=== PATIENT | male | born 1950 | race Caucasian/White ===

== ENCOUNTER 2016-11-25 01:05 | Inpatient (IN) | payer MEDICARE, MEDICAID ==
[2016-11-25] MEDS ORDERED: Nitroglycerin D5W 50,000 MCG/250 ML IVBOT IV SCH (01:17)
[2016-11-25] MEDS ORDERED: METHYLPREDNISOLONE 125 MG/2 ML VIAL IV ONE (01:17)
[2016-11-25 01:30] LABS: ALLEN'S TEST PASS; BEb -8.6 (+/- 2); TCO2 17.6 MMOL/L (23-27)
[2016-11-25 01:31] LABS: ABG Draw Site Right Radial; CPAP 7.5 cm H20
[2016-11-25 01:36] LABS: AUTOMATED BASOPHIL 1.2 % (0-2); AUTOMATED EOSINOPHIL 3.2 % (0-5); AUTOMATED MONOCYTE 5.2 % (3-10); AUTOMATED NEUTROPHIL 79.4 % (45-76); MPV 8.5 fL (7.4-10.4)
[2016-11-25 01:45] LABS: BLOOD UREA NITROGEN 36 MG/DL (9-20); CALC CORRECTED 8.1 MG/DL (8.4-10.2); CALCIUM 7.8 MG/DL (8.4-10.2); CALCULATED OSMOLALITY 278 MOs/Kg (270-290); CHLORIDE 107 mEq/L (98-107); CPK TOTAL WITH POSSIBLE MB 82 IU/L (55-170); GLUCOSE 201 MG/DL (70-99); SODIUM LEVEL 137 mEq/L (137-146); TOTAL PROTEIN 7.1 G/DL (6.3-8.2)
[2016-11-25 01:49] LABS: PARTIAL THROMB. TIME 23.3 SEC (22-35)
--- NOTE | 2016-11-25 01:51 | EDPRACDOC ---
- General Information Chief Complaint: Dyspnea/Resp distress Stated Complaint: RESP FAILURE Time Seen by Provider: 11/25/16 01:16 Information Source: Patient Mode Of Arrival: Ambulance Home Medications: Home Medications Amlodipine [Norvasc] 5 mg PO DAILY 11/15/13 Esomeprazole Mag Trihydrate [Nexium] 40 mg PO DAILY 09/18/15 Insulin Glargine,Hum.rec.anlog [Lantus] 20 unit SQ HS 09/18/15 Calcitriol [Rocaltrol] 0.25 mcg PO DAILY 11/11/15 Tamsulosin HCl [Flomax] 0.4 mg PO QAM 11/11/15 Triamcinolone [Kenalog, Aristocort] 1 pratik TOP QID 11/26/15 CloNIDine (Antihypertensive) [Catapres] 0.1 mg PO BID 07/15/16 Gabapentin 300 mg PO HS 07/15/16 Magnesium Oxide [Magox] 400 mg PO DAILY 07/15/16 Allergies/Adverse Reactions: Allergies Allergy/AdvReac Type Severity Reaction Status Date / Time clopidogrel bisulfate Allergy Hives* Verified 08/10/16 08:57 [From Plavix] iodine [Iodine] Allergy Itching Verified 08/10/16 08:57 - History of Present Illness Shortness of Breath: Severe Relevant History: Reports: COPD, Heart Failure (CHF) Cough: Reports: Non-productive Rhinorrhea: Reports: Clear SOB Worsens with: Reports: Anxiety, Lying Flat SOB Improves with: Reports: Sitting up, Inhaler, Rest Associated Signs and symptoms: Reports: Cough. 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 Denies: Pancreatitis Musculoskeletal History: Reports: Osteoarthritis Psychological History: Reports: Depression, Anxiety. Denies: Substance Use Disorder Systemic History: Reports: Cancer (ADENOCARCINOMA OF LUNG S/P IGGY RESECTION 2010 ), Anemia (FE DEF AND CKD), Diabetes Surgical History: Reports: Angioplasty, Other (Left upper lung lobectomy, aorto- femoral bypass) - Family Medical History Reports: Hypertension, Cancer (Multiple members of family of had lung cancer), Cardiac Disorders (dad). Denies: Diabetes, Stroke - Social Medical History Smoking Status: Never smoker Social History: Denies: MDMA (Ecstasy) Use, Substance Use Disorder EDM Review of Systems - Review of Systems ROS Negative Except as Marked: Yes All systems reviewed and were negative except as marked - Physical Exam Constitutional: Alert, Restless, Well nourished. negative: Well appearing Oriented to: Unable to Test, Other (CPAP, INC WOB, RESP DISTRESS) Last recorded Vital Signs: Last Vital Signs Temp Pulse 121 H 11/25/16 01:05 Resp 16 11/25/16 01:20 BP 210/130 H 11/25/16 01:05 Pulse Ox 95 11/25/16 01:20 Oxygen Pulse Oxygen Saturation 95 O2 Device CPAP Oxygen Flow Rate Fraction of Inspired Oxygen ( 35 FIO2) - HEENT Head: Normal Eye Exam: Normal Neck: Normal. negative: Limited ROM, Lymphadenopathy, Meningeal Signs - Respiratory/Cardiovascular Respiratory: Accessory Muscle Use, Diminished, Rales, Tachypnea, Other (CPAP, RESP DISTRESS, UNABLE TO SPEAK CLEARLY) Cardiovascular: Tachycardia, Gallop/S4. negative: Irregular, Diastolic murmur, Systolic murmur, Gallop/S3 - GI Auscultation: Normal Palpation: Normal Tenderness: Non tender, Other (MIDLINE INCISION SCAR) Elkins's Sign: Negative - Bladder: Normal - Musculoskeletal Back: Normal Extremities: Pedal Edema (2+ ROBERT LE TO MID CALF) - Integumentary Skin: Warm, Diaphoretic - Neurologic Memory Impaired: Normal Motor Function: Other (MOVES ALL EXT) Mood Description: Appropriate Thought: Coherent ED SOB MDM - Re-evaluation Re-evaluation 2 Re-evaluation Time: 01:54 (MUCH IMPROVED, ON BIPAP, NTG GTT SBP 156 ) - Results Result Diagrams: 11/25/16 01:11 11/25/16 01:11 Results: WBC 9.7 xk/uL (3.8-10.8) 11/25/16 01:11 RBC 5.23 xM/uL (4.70-6.10) 11/25/16 01:11 Hgb 14.9 g/dL (14.0-18.0) 11/25/16 01:11 Hct 45.0 % (42-52) 11/25/16 01:11 MCV 86 fL (80-94) 11/25/16 01:11 MCH 28.6 pg (27-32) 11/25/16 01:11 MCHC 33.2 g/dl (33-36) 11/25/16 01:11 RDW 14.7 % (11.5-14.5) H 11/25/16 01:11 Plt Count 182 xk/uL (130-400) 11/25/16 01:11 MPV 8.5 fL (7.4-10.4) 11/25/16 01:11 Neut % (Auto) 79.4 % (45-76) H 11/25/16 01:11 Lymph % (Auto) 11.0 % (17-44) L 11/25/16 01:11 [place] % (Auto) 5.2 % (3-10) 11/25/16 01:11 Eos % (Auto) 3.2 % (0-5) 11/25/16 01:11 Baso % (Auto) 1.2 % (0-2) 11/25/16 01:11 Absolute Neuts (auto) 7.66 xk/uL (1.7-8.2) 11/25/16 01:11 Absolute Lymphs (auto) 1.07 xk/uL (0.65-4.75) 11/25/16 01:11 Puncture Site Right radial 11/25/16 01:15 pH 7.310 pH UNITS (7.35-7.45) L 11/25/16 01:15 pCO2 33.0 mmHg (35-45) L 11/25/16 01:15 pO2 77.0 mmHg (80-100) L 11/25/16 01:15 HCO3 16.6 MMOL/L (22-26) L 11/25/16 01:15 Total CO2 17.6 MMOL/L (23-27) L 11/25/16 01:15 Base Excess -8.6 (+/- 2) L 11/25/16 01:15 CPAP 7.5 cm H20 11/25/16 01:15 Specimen Drawn By Kaytr 11/25/16 01:15 Lactic Acid 1.2 mEq/L (0.7-2.1) 11/25/16 01:11 Creatine Kinase Cancelled 11/25/16 01:11 Troponin I Cancelled 11/25/16 01:11 Oqi-E-Apxmauoppus Pept Cancelled 11/25/16 01:11 Lab Results 11/25/16 11/25/16 11/25/16 01:15 01:11 01:11 WBC RBC Hgb Hct MCV MCH MCHC RDW Plt Count MPV Neut % (Auto) Lymph % (Auto) [place] % (Auto) Eos % (Auto) Baso % (Auto) Absolute Neuts (auto) Absolute Lymphs (auto) Puncture Site Right radial pH 7.310 L pCO2 33.0 L pO2 77.0 L HCO3 16.6 L Total CO2 17.6 L Base Excess -8.6 L CPAP 7.5 Specimen Drawn By Kaytr Lactic Acid Creatine Kinase Cancelled Troponin I Cancelled Rbb-I-Sluvmtrytgi Pept Cancelled 11/25/16 11/25/16 01:11 01:11 WBC 9.7 RBC 5.23 Hgb 14.9 Hct 45.0 MCV 86 MCH 28.6 MCHC 33.2 RDW 14.7 H Plt Count 182 MPV 8.5 Neut % (Auto) 79.4 H Lymph % (Auto) 11.0 L [place] % (Auto) 5.2 Eos % (Auto) 3.2 Baso % (Auto) 1.2 Absolute Neuts (auto) 7.66 Absolute Lymphs (auto) 1.07 Puncture Site pH pCO2 pO2 HCO3 Total CO2 Base Excess CPAP Specimen Drawn By Lactic Acid 1.2 Creatine Kinase Troponin I Dry-B-Ibyqldmmtyi Pept - EKG EKG #1 EKG Time: 01:14 -: Yes EKG interpreted by me Rate: bpm: 120 [place]: Normal Rhythm: ST Block: None Hypertrophy: LVH ST: New, Inf, Lat, Nonsp Comparison: 11/25/15 (NEW INF / LAT CHANGES) ED Critical Care Note - Critical Care Note Total Time (mins): 35 Comments: Due to the presence of and / or the risk of deterioration, my attendance to this patient required critical care time, including assessment/reassessment, documentation, ordering and interpreting ancillary studies, discussion with ED staff and consultants,patient and family, and excludes time spent on separately billable procedures. - Departure Disposition: Admit IP To This Hospital Condition: Stable Final Diagnosis: Hypertensive emergency, Respiratory distress, Abnormal EKG, Acute decompensated heart failure Instructions: Chronic Hypertension (ED), *Heart Failure (Activity, Diet, Worsening Symptoms, Weight Monitoring)(ED) Education/Counseling Given To: Patient Education/Counseling Given Regarding: Diagnosis, Treatment, Prognosis Referrals: Clive Anguiano MD [Primary Care Provider] - One Week Decision to Admit Time: 02:17 Decision to admit date: 11/25/16 Decision to admit: from ED - Physician Consulted Hospitalist Time Called: 02:17 Provider Called: Fredo Alvarez Time Environmental Engineering Intern Returned Call: 02:17
--- NOTE | 2016-11-25 02:10 | DIRPT ---
CLINICAL DATA: Respiratory distress. Abdominal breathing. Bilateral wheezing. Elevated blood pressure. EXAM: PORTABLE CHEST 1 VIEW COMPARISON: 11/25/2015 FINDINGS: Heart size is normal. Bilateral pulmonary vascular congestion. Airspace disease in the right lung base could represent pneumonia or asymmetrical edema. Small bilateral pleural effusions. Calcification of the aorta. No pneumothorax. IMPRESSION: Bilateral pulmonary vascular congestion. Small bilateral pleural effusions. Airspace disease in the right lung base could indicate asymmetrical edema or pneumonia. Changes are developing since previous study. Electronically Signed By: Sridhar Campos M.D. On: 11/25/2016 02:08
--- NOTE | 2016-11-25 02:51 | HISTPHYS ---
- Chief Complaint shortness of breath - History of Present Illness PRIMARY CARE PROVIDER: Dr. Anguiano TIRE MANAGER: In [place] GI: Dr. Wheeler HPI: The patient is a 65 yo man with diastolic congestive heart failure (EF 55-60% in 09/2015), COPD per report, who presents with shortness of breath. He has had shortness of breath for a month, but last night it became so severe that he had to call EMS. He began to have profuse diaphoresis. No chest pressure, pain, or heaviness. Onset: Last night (a few hours ago). Duration: intermittent. Character: Severe; could not catch his breath. Alleviated by: Nothing. Exacerbated by: any exertion. Associated Symptoms: Palpitations but no chest pain. Diaphoresis. No Fever, chills. Shortness of breath and wheezing was worse tonight. Has coughing also, but no change in the sputum. Leg swelling is worse than normal. Has not noticed any weight gain. Treatments: none at home except usual medications. When EMS arrived, they found the patient to be in acute respiratory failure, with abdominal breathing, and started him on CPAP immediately. They found his blood pressure to be severely elevated at 260/130. They placed 2" of Nitropaste on the patient. In the emergency department the patient was still in respiratory failure, and was placed on BiPAP. For his elevated blood pressure, he was started on an IV nitro gtt, and the 2" nitropaste was left in place. - Medical History Cardiac History: Reports: Coronary Artery Disease (and chronic mesenteric ischemia, PAD.), Hypertension, Congestive Heart Failure (Diastolic. 09/2015 ECHO : EF 55-60%.), Hypercholesterolemia (and peripheral artery disease. Aorto- femoral bypass. 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 Baseline Cr 3.2-3.7, baseline GFR 16-19. Nephro : HP), Gastroesophageal Reflux (RECURRENT GI BLEEDS, SOURCE UNKNOWN.), Diverticulosis. Denies: Pancreatitis Musculoskeletal History: Reports: Osteoarthritis Systemic History: Reports: Cancer (Stage IA ADENOCARCINOMA OF LUNG S/P IGGY RESECTION 2010), Anemia (FE DEF AND CKD. Dr. Dodd.), Diabetes (Type 2) Neurological History: Reports: Cerebrovascular Accident (07/2015. Right occipital lobe.) Psychological History: Reports: Depression, Anxiety. Denies: Substance Use Disorder OTHER HISTORY CARDIAC HISTORY: Chronic mesenteric ischemia, celiac artery stenting 07/2013 Peripheral arterial disease with surgeries at [facility]: Aorto-femoral bypass 2004 Right carotid endarterectomy ECHOCARDIOGRAM 10/14/15: EF 55-60%. FINDINGS ------- Procedure:2D images, m-mode, color and spectral Doppler were obtained and reviewed. ECG rhythm:Sinus rhythm. Study quality:This study is of fair technical quality. Left Ventricle:The left ventricle is mildly dilated with mild concentric left ventricular hypertrophy. Overall left ventricular systolic function is normal with, an EF between 55 - 60 %. The diastolic filling pattern indicates impaired relaxation. Right Ventricle:The right ventricle is normal in size and function. Left Atrium:The left atrium is mildly dilated/ elongated. Right Atrium:The right atrium is normal in size and function. Septum appears normal, and is intact by color Doppler. Aortic Valve:The aortic valve is trileaflet with mild aortic valve sclerosis, good mobility, no regurgitation. Mitral Valve:Normal appearing mitral valve. There is trace mitral regurgitation. Tricuspid Valve:The tricuspid valve appears structurally normal. Mild tricuspid regurgitation present. The right ventricular systolic pressure, as measured by Doppler, is 35mmHg. Pulmonic Valve:The pulmonic valve is normal. Trace/mild (physiologic) pulmonic regurgitation. Aorta:The aortic root, ascending aorta and aortic arch appear normal,but somewhat TDS. IVC:Normal inferior vena cava with normal inspiratory collapse. Somewhat TDS Subcostal. Pericardium:There is no pericardial effusion. CONCLUSIONS 1. Mild concentric left ventricular hypertrophy with low normal systolic function, no segmental abnormality identified, EF 55-60%. 2. mild left atrial dilatation 3. aortic sclerosis but no significant valvular heart disease 4. normal right heart size/function, mild tricuspid regurgitation, high normal pulmonary artery pressure, 35mmHg 5. no intra-cardiac source for emboli identified 6. Diastolic dysfunction - impaired relaxation. ONCOLOGY HISTORY: Adenocarcinoma of lung, Stage IA. ([id number]) Moderately differentiated adenocarcinoma 1.8 cm in left upper lung. EGFR mutation and EML-4-ALK negative Left upper lobe resection at [facility] in July 2011 GI HISTORY: EGD 08/2015 for Hb 6.6 with melanotic stool. EGD unremarkable: small hiatal hernia. Colonoscopy 12/26/13: mild sigmoid diverticulosis otherwise normal. Small bowel biopsies 2014 negative for celiac disease. Colonoscopy 02/2012 consistent with ischemic colitis and tubular adenomas EGD 02/2012 showed duodenal polyps but no AVMs Was scheduled for capsule endoscopy at [facility] several times but did not show up Chronic mesenteric ischemia, celiac artery stenting 07/2013 - Surgical History Reports: Angioplasty (and Y-graft bypass surgery. celiac artery stent 08/12.), Other (@[facility]: Left upper lung lobectomy 2010, aorto-femoral bypass 2004, R CEA) - Medictions/Allergies Allergies clopidogrel bisulfate [From Plavix] Allergy (Verified 08/10/16 08:57) Hives* iodine [Iodine] Allergy (Verified 08/10/16 08:57) Itching IVP DYE Current Medication List: Reviewed Home Medications Amlodipine [Norvasc] 5 mg PO DAILY 11/15/13 Esomeprazole Mag Trihydrate [Nexium] 40 mg PO DAILY 09/18/15 Insulin Glargine,Hum.rec.anlog [Lantus] 20 unit SQ HS 09/18/15 Calcitriol [Rocaltrol] 0.25 mcg PO DAILY 11/11/15 Tamsulosin HCl [Flomax] 0.4 mg PO QAM 11/11/15 Triamcinolone [Kenalog, Aristocort] 1 pratik TOP QID 11/26/15 CloNIDine (Antihypertensive) [Catapres] 0.1 mg PO BID 07/15/16 Gabapentin 300 mg PO HS 07/15/16 Magnesium Oxide [Magox] 400 mg PO DAILY 07/15/16 - Family History Reports: Hypertension, Cancer (Lung: sister and brother, both .), Cardiac Disorders (Father: [place].), Other (Sister: cirrhosis.) - Social History Smoking Status: Former smoker (1 ppd x > 47 years.) Social History: Denies: Alcohol Use, MDMA (Ecstasy) Use, Substance Use Disorder - Review of Systems GENERAL: Diaphoresis. No Fever, chills. Positive for fatigue/malaise. HEENT: No nasal discharge or bleeding. No throat pain or swelling. No eye pain or eye redness. RESPIRATORY: Cough, wheezing, shortness of breath. CARDIOVASCULAR: Palpitations but no chest pain. GI: No abdominal pain, nausea, vomiting, diarrhea, constipation, or bloody stool. NEUROLOGICAL: No headache or focal weakness. INTEGUMENT: no rashes, itching, or lesions. LYMPHATIC SYSTEM: no lymph node swelling or pain. MUSCULOSKELETAL: no new pain or joint swelling. GENITOURINARY: No dysuria or hematuria. ENDOCRINE: No polyuria or polydipsia. HEME: No chronic anemia, bleeding, or easy bruising. - Physical Exam Vital Signs: Initial Vitals Temperature 98.8 F 11/25/16 01:05 Pulse Rate 121 H 11/25/16 01:05 Respiratory Rate 27 H 11/25/16 01:05 Blood Pressure 210/130 H 11/25/16 01:05 Pulse Oxygen Saturation 95 11/25/16 01:05 Vital Signs - 24 hr 11/25/16 11/25/16 11/25/16 01:05 01:11 01:20 Temperature 98.8 F Pulse Rate 121 H 120 H Respiratory 27 H 26 H 16 Rate Blood Pressure 210/130 H 210/113 H Pulse Oxygen 95 93 95 Saturation 11/25/16 11/25/16 11/25/16 01:26 01:41 01:47 Temperature Pulse Rate 111 101 101 Respiratory 24 18 20 Rate Blood Pressure 189/96 H 156/74 146/70 Pulse Oxygen 94 94 94 Saturation 11/25/16 11/25/16 11/25/16 01:51 01:56 02:01 Temperature Pulse Rate 98 99 99 Respiratory 20 18 18 Rate Blood Pressure 141/68 146/70 132/65 Pulse Oxygen 93 94 95 Saturation 11/25/16 11/25/16 11/25/16 02:06 02:11 02:16 Temperature Pulse Rate 100 99 95 Respiratory 18 18 18 Rate Blood Pressure 124/60 133/70 133/68 Pulse Oxygen 95 96 96 Saturation Weight: 87 kg Height: 5 feet 11 inches BMI: 26.8 - Other Exam Other Exam Findings: GENERAL: Ill-appearing, well nourished, in acute distress. HEENT: Normocephalic, atraumatic; pupils equal and round. Nares patent, without discharge or bleeding. No oropharyngeal lesions or erythema. Mucous membranes are dry. NECK: is supple, no masses, trachea midline. RESPIRATORY: Clear to auscultation bilaterally. Chest wall movements are symmetric. Tachypnea and use of accessory muscles to breathe. Bilateral rales. Scattered wheezing. No rhonchi. CARDIOVASCULAR: Normal S1, S2. Murmur 2/6 systolic. No rubs, or gallops. PMI non -displaced. Carotids: no carotid bruits. No bradycardia or tachycardia. DP pulses 2+ bilaterally. JVD noted. GI: soft, nontender, non-distended, normal active bowel sounds. No hepatosplenomegaly. INTEGUMENT: Clean, diaphoretic, and intact. Left lower leg medial aspect and toes: mild erythema, uniform. MUSCULOSKELETAL: Moving all extremities. No cyanosis. No clubbing. Edema: 1-2+ pitting edema in lower extremities bilaterally. NEUROLOGICAL: Cranial nerves 2-12 grossly intact. Motor 5/5 throughout upper extremities and 4/5 in lower extremities. Reflexes: 2+ bilaterally. Babinski: toes downgoing bilaterally. Intact Finger to nose. Sensory grossly intact to light touch. Intact rapid alternating movements bilaterally. No pronator drift. PSYCHIATRIC: Fully oriented. Normal and appropriate affect. LYMPHATIC: No cervical lymphadenopathy. No supraclavicular lymphadenopathy. - Lab Results 11/25/16 01:11 11/25/16 01:11 Laboratory Results - last 24 hr 11/25/16 11/25/16 11/25/16 01:11 01:11 01:11 WBC 9.7 RBC 5.23 Hgb 14.9 Hct 45.0 MCV 86 MCH 28.6 MCHC 33.2 RDW 14.7 H Plt Count 182 MPV 8.5 Neut % (Auto) 79.4 H Lymph % (Auto) 11.0 L Waller % (Auto) 5.2 Eos % (Auto) 3.2 Baso % (Auto) 1.2 Absolute Neuts (auto) 7.66 Absolute Lymphs (auto) 1.07 PT INR APTT Puncture Site pH pCO2 pO2 HCO3 Total CO2 Base Excess CPAP Specimen Drawn By Sodium 137 Potassium 4.6 Chloride 107 Carbon Dioxide 17 L Anion Gap 18 H BUN 36 H Creatinine 5.10 H Estimated GFR (MDRD) 11 L Glucose 201 H Calculated Osmolality 278 Lactic Acid 1.2 Calcium 7.8 L Corrected Calcium 8.1 L Total Bilirubin 0.5 AST 19 ALT 21 Alkaline Phosphatase 95 Creatine Kinase 82 Troponin I 0.04 Bns-T-Vsvsdtmrnez Pept 82851 H Total Protein 7.1 Albumin 3.7 11/25/16 11/25/16 11/25/16 01:11 01:11 01:11 WBC RBC Hgb Hct MCV MCH MCHC RDW Plt Count MPV Neut % (Auto) Lymph % (Auto) Waller % (Auto) Eos % (Auto) Baso % (Auto) Absolute Neuts (auto) Absolute Lymphs (auto) PT 10.4 INR 1.0 APTT 23.3 Puncture Site pH pCO2 pO2 HCO3 Total CO2 Base Excess CPAP Specimen Drawn By Sodium Potassium Chloride Carbon Dioxide Anion Gap BUN Creatinine Estimated GFR (MDRD) Glucose Calculated Osmolality Lactic Acid Calcium Corrected Calcium Total Bilirubin AST ALT Alkaline Phosphatase Creatine Kinase Cancelled Troponin I Cancelled Dge-H-Gseqivbijim Pept Cancelled Total Protein Albumin 11/25/16 01:15 WBC RBC Hgb Hct MCV MCH MCHC RDW Plt Count MPV Neut % (Auto) Lymph % (Auto) Waller % (Auto) Eos % (Auto) Baso % (Auto) Absolute Neuts (auto) Absolute Lymphs (auto) PT INR APTT Puncture Site Right radial pH 7.310 L pCO2 33.0 L pO2 77.0 L HCO3 16.6 L Total CO2 17.6 L Base Excess -8.6 L CPAP 7.5 Specimen Drawn By Kaytr Sodium Potassium Chloride Carbon Dioxide Anion Gap BUN Creatinine Estimated GFR (MDRD) Glucose Calculated Osmolality Lactic Acid Calcium Corrected Calcium Total Bilirubin AST ALT Alkaline Phosphatase Creatine Kinase Troponin I Epi-Q-Nmhnrxamizr Pept Total Protein Albumin - Diagnostic Findings EKG #1: 120 bpm. Sinus tachycardia. Anteroseptal infarct, age undetermined. ST and T wave abnormality, consider inferolateral ischemia. T wave inversion in leads 1, 2, aVF, and V6. J point elevation in V3, V4. Slight ST depression in 2 , aVF, and V6. Reviewed EKG personally. EKG #2: 94 bpm. Normal sinus rhythm. Anteroseptal infarct, age undetermined. T wave abnormality, consider inferolateral ischemia. T wave inversion in leads 1, 2, aVF. T wave inversion in V6 has resolved. Flat T wave in 3. J point elevation in V3 and V4 mostly resolved. ST depressions in 2, aVF, and V6 seen in previous EKG have now resolved. Reviewed EKG personally. Chest x-ray, viewed personally: EXAM: PORTABLE CHEST 1 VIEW COMPARISON: 11/25/2015 FINDINGS: Heart size is normal. Bilateral pulmonary vascular congestion. Airspace disease in the right lung base could represent pneumonia or asymmetrical edema. Small bilateral pleural effusions. Calcification of the aorta. No pneumothorax. IMPRESSION: Bilateral pulmonary vascular congestion. Small bilateral pleural effusions. Airspace disease in the right lung base could indicate asymmetrical edema or pneumonia. Changes are developing since previous study. - Assessment (1) Acute on chronic diastolic (congestive) heart failure I50.33 - ACUTE ON CHRONIC DIASTOLIC (CONGESTIVE) HEART FAILURE Acute Present on Admission: Yes The patient has both acute and chronic heart failure. Heart failure type: Diastolic. Echocardiogram results from past: Echo September 2015: EF 55-60%. Diastolic dysfunction. Plan: Admit to PCU with telemetry. CHF order set. Diet of 2 g Na. Daily weights with strict I/O's. No IVF unless patient is NPO. As tolerated, give beta yin. No DANA inhibitor or ARB due to acute and chronic renal failure. Give Lasix IV scheduled, but caution due to acute on chronic renal failure. Replace potassium as needed. Monitor heart rate, blood pressure, and respiratory status carefully. Provide support with oxygen. Provide teaching regarding heart failure, 2g Na diet, daily weights, signs of acute heart failure. (2) Acute on chronic renal failure N17.9 - ACUTE KIDNEY FAILURE, UNSPECIFIED; N18.9 - CHRONIC KIDNEY DISEASE, UNSPECIFIED Acute Acute worsening. Baseline Cr is 3.4-3.7. Admission Cr is 5.1. Plan: Unfortunately patient is having pulmonary edema, acute, with CHF exacerbation. He is requiring BiPAP. Will need to give patient Lasix, which will likely worsen his renal function. Avoid nephrotoxins. Monitor Cr levels. (3) Hypertensive emergency I16.1 - HYPERTENSIVE EMERGENCY Acute Present on Admission: Yes Severe elevation of blood pressure with acute pulmonary edema. SBP greater than 200 initially. Was given nitro paste and started on IV nitro gtt in the emergency department. Plan: Improving. Wean off IV Nitro gtt. Continue Nitro paste for now. Adding beta yin. Consider further medication as needed. (4) Hypoxemia R09.02 - HYPOXEMIA Acute Present on Admission: Yes Severe, and was requiring CPAP by EMS. He actually has acute respiratory failure. ABG does not indicate the level of severity of respiratory failure becase it was obtained after treatment and on BiPAP. Plan: Contine BiPAP 12/6. Wean FiO2 as tolerated. (5) Abnormal EKG R94.31 - ABNORMAL ELECTROCARDIOGRAM [ECG] [EKG] Acute Present on Admission: Yes EKG in emergency department: 120 bpm. Sinus tachycardia. Anteroseptal infarct, age undetermined. ST and T wave abnormality, consider inferolateral ischemia. T wave inversion in leads 1, 2, aVF, and V6. J point elevation in V3, V4. Slight ST depression in 2, aVF, and V6. May be due to acute severe blood pressure elevation and acute respiratory distress. No chest pain on admission. Plan: Treat blood pressure. Additional Nitro PRN. Beta yin. No DANA/ARB due to chronic renal failure. O2 by BiPAP. Monitor for chest pain. Repeat EKG. (6) COPD (chronic obstructive pulmonary disease) J44.9 - CHRONIC OBSTRUCTIVE PULMONARY DISEASE, UNSPECIFIED Chronic Present on Admission: Yes Qualifiers: COPD type: emphysema Chronic bronchitis type: C Emphysema type: panlobular Qualified Code(s): J43.1 - Panlobular emphysema Probable COPD, and has had diagnosis in the past, but his home meds do not include inhalers. Current respiratory distress is more likely due to pulmonary edema. Patient received methylprednisolone 125 mg IV x 1 in the emergency department but has not received inhalers. Plan: Trial of inhalers. Hold off on further methylprednisolone, but consider starting if patient has significant wheezing. 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 Check fingerstick blood sugars q ac and hs. Sliding scale insulin. Ordered A1c and urine microalbumin. - Plan In summary, this patient is acutely and critically ill. The patient requires treatment of vital organ failure and measures to prevent further life- threatening deterioration of condition. I have spent 70 min in the critical care of this patient. Case Care Discussed with: Patient, Nursing Staff Total Time: 70 min Critical Care: Yes Code: 291
[2016-11-25] MEDS ORDERED: NITROGLYCERINE 0.4 MG TAB SL PRN (04:16)
[2016-11-25] MEDS ORDERED: MORPHINE 2 MG/ML INJECTION IV PRN (04:16)
[2016-11-25] MEDS ORDERED: BISACODYL 5 MG TAB PO PRN (04:24)
[2016-11-25] MEDS ORDERED: SIMETHICONE 80 MG TAB PO PRN (04:24)
[2016-11-25] MEDS ORDERED: TEMAZEPAM 15 MG CAP PO PRN (04:24)
[2016-11-25] MEDS ORDERED: GUAIFEN 100 MG-DEXTROMETH 10 MG PER 5 ML PO PRN (04:24)
[2016-11-25] MEDS ORDERED: GLUCOSE (ORAL GEL) 15 GM TUBE PO PRN (04:24)
[2016-11-25] MEDS ORDERED: GLUCAGON 1 MG VIAL SQ PRN (04:24)
[2016-11-25] MEDS ORDERED: ALBUTEROL 0.083% 3 ML NEB NEB PRN (04:24)
[2016-11-25] MEDS ORDERED: DEXTROSE 25 GM/50 ML PFS IV PRN (04:24)
[2016-11-25] MEDS ORDERED: BENZONATATE 100 MG PERLES PO PRN (04:24)
[2016-11-25] MEDS ORDERED: SODIUM CHLORIDE 0.9% 3 ML FLUSH FLUSH PRN (04:24)
[2016-11-25] MEDS ORDERED: Docusate Sodium 100 MG CAP PO PRN (04:24)
[2016-11-25] MEDS ORDERED: ACETAMINOPHEN 325 MG/TAB TABLET PO PRN (04:24)
[2016-11-25] MEDS ORDERED: PROMETHAZINE 25 MG/ML VIAL IV PRN (04:24)
[2016-11-25] MEDS ORDERED: ACETAMINOPHEN 325 MG SUPP PR PRN (04:24)
[2016-11-25] MEDS ORDERED: SENNA CONCENTRATE TAB PO PRN (04:24)
[2016-11-25] MEDS ORDERED: ONDANSETRON HCL 4 MG/2 ML VIAL IV PRN (04:24)
[2016-11-25] MEDS ORDERED: Furosemide 100 MG/10 ML VIAL IV SCH (05:00)
[2016-11-25] MEDS ORDERED: Pharmacy Order Set Alert SCH (05:00)
[2016-11-25] MEDS ORDERED: ENOXAPARIN 40 MG/0.4 ML PFS SQ SCH (05:00)
[2016-11-25 05:22] LABS: LDL (calc.) 222.2 MG/DL (<100); VLDL (calc.) 58.8 MG/DL (5-40)
[2016-11-25 05:33] VITALS: BMI 26.2
[2016-11-25] MEDS: REGULAR INSULIN 100 UNITS/ML - 3 ML VIAL SQ SCH ×2 (05:37→11:18)
[2016-11-25] MEDS ORDERED: SODIUM CHLORIDE 0.9% 3 ML FLUSH FLUSH SCH (06:00)
[2016-11-25] MEDS ORDERED: Vaccine Screening Complete SCH (07:00)
[2016-11-25] MEDS: Albuterol/Ipratropium Neb 3 ML NEB NEB SCH ×2 (07:57→14:07)
[2016-11-25] MEDS ORDERED: Aspirin (Orange Enteric Coated) 325 mg tab PO SCH (08:00)
[2016-11-25] MEDS ORDERED: ATORVASTATIN 40 MG TAB PO SCH (09:00)
[2016-11-25] MEDS ORDERED: ENOXAPARIN 30 MG/0.3 ML PFS SQ SCH (09:00)
[2016-11-25] MEDS ORDERED: CARVEDILOL 3.125 MG TAB PO SCH (09:00)
--- NOTE | 2016-11-25 11:05 | PCM.CARDCO ---
Consultation Date: 11/25/16 Requesting Physician: Fredo Alvarez Pharmacy Technician Trainee: Curry Zuniga - History of Present Illness Patient is a 65 years old gentleman with multiple medical problems. He does have significant peripheral vascular disease. Apparently did have some work done in his distal lower aorta and iliac vessels. He also get right coronary endarterectomy done couple years ago. Recently he was discovered to have critical lesion in left internal cardiac artery. He was scheduled to have carotid endarterectomy by before that he was asked to see power distributor in [place] for clearance. In the meantime however he started complaining of having increased shortness of breath within. Of last couple days to weeks. There is no swelling of lower extremities just shortness of breath and some paroxysmal nocturnal dyspnea. He was not able to do anything without getting significantly short of breath. When he came to the emergency room he was fine to be in pulmonary edema. He was given diuretics. Feeling much better. He is on CPAP mask. Chief Complaint: shortness of breath - Past Medical and Surgical History Cardiac History: Reports: Coronary Artery Disease (and chronic mesenteric ischemia, PAD.), Hypertension, Congestive Heart Failure (Diastolic. 09/2015 ECHO : EF 55-60%.), Hypercholesterolemia (and peripheral artery disease. Aorto- femoral bypass. 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 Baseline Cr 3.2-3.7, baseline GFR 16-19. Nephro : HP), Gastroesophageal Reflux (RECURRENT GI BLEEDS, SOURCE UNKNOWN.), Diverticulosis. Denies: Pancreatitis Systemic History: Reports: Cancer (Stage IA ADENOCARCINOMA OF LUNG S/P IGGY RESECTION 2010), Anemia (FE DEF AND CKD. Dr. Dodd.), Diabetes (Type 2) Musculoskeletal History: Reports: Osteoarthritis Psychological History: Reports: Depression, Anxiety. Denies: Alcoholism, Substance Use Disorder Neurological History: Reports: Cerebrovascular Accident (07/2015. Right occipital lobe.) Past Surgical History: Reports: Angioplasty (and Y-graft bypass surgery. celiac artery stent 08/12.), Other (@[facility]: Left upper lung lobectomy 2010, aorto- femoral bypass 2004, R CEA) Allergies clopidogrel bisulfate [From Plavix] Allergy (Verified 11/25/16 05:50) Hives* iodine [Iodine] Allergy (Verified 11/25/16 05:50) Itching IVP DYE Home Medications Amlodipine [Norvasc] 5 mg PO DAILY 11/15/13 Esomeprazole Mag Trihydrate [Nexium] 40 mg PO DAILY 09/18/15 Insulin Glargine,Hum.rec.anlog [Lantus] 20 unit SQ HS 09/18/15 Calcitriol [Rocaltrol] 0.25 mcg PO DAILY 11/11/15 CloNIDine (Antihypertensive) [Catapres] 0.2 mg PO QAM 07/15/16 Gabapentin 300 mg PO HS 07/15/16 Magnesium Oxide [Magox] 400 mg PO DAILY 07/15/16 Aspirin [Aspirin EC] 81 mg PO DAILY 11/25/16 CloNIDine (Antihypertensive) [Catapres] 0.1 mg PO HS 11/25/16 Sodium Bicarbonate 650 mg PO BID 11/25/16 - Social History Travel Outside of [place] in the Last 3 Months?: No Smoking Status: Former smoker (1 ppd x > 47 years.) Social History: Denies: Alcohol Use, MDMA (Ecstasy) Use, Substance Use Disorder - Family History Reports: Hypertension, Cancer (Lung: sister and brother, both .), Cardiac Disorders (Father: [place].), Other (Sister: cirrhosis.). Denies: Diabetes, Stroke - Physical Exam Constitutional: Alert, Restless, Well nourished. negative: Well appearing Oriented to: Unable to Test, Other (CPAP, INC WOB, RESP DISTRESS) Exam: Last Vital Signs Temp 97.6 F 11/25/16 08:07 Pulse 93 11/25/16 08:07 Resp 18 11/25/16 08:07 BP 144/85 11/25/16 08:07 Pulse Ox 94 11/25/16 08:07 Intake & Output 11/24/16 11/25/16 11/25/16 23:59 07:59 15:59 Intake Total 7 Output Total 300 Balance 7 -300 Patient's weight 85.077 kg - HEENT Head: Normal Eye: Normal - Respiratory/Cardiovascular Respiratory: Accessory Muscle Use, Diminished, Rales, Tachypnea, Other (CPAP, RESP DISTRESS, UNABLE TO SPEAK CLEARLY) - GI Auscultation: Normal Palpation: Normal Tenderness: Non tender, Other (MIDLINE INCISION SCAR) - Musculoskeletal Back: Normal Extremities: Pedal Edema (2+ ROBERT LE TO MID CALF) - Integumentary Skin: Warm, Diaphoretic - Neurologic Memory Impaired: Normal Mood Description: Appropriate Thought: Coherent - Other Exam Other Exam Findings: General Appearance: Well developed. Well nourished. In no acute distress. Lungs: Chest was not overinflated. Clear to auscultation. Cardiovascular: Jugular Venous Distention: JVD not increased. Heart Rate And Rhythm: Tachycardia. Heart Sounds: Normal. Murmurs: Soft systolic murmur grade 1-2/6 best heard left border of the sternum Carotid Arteries: Carotid pulses were normal. No bruit in the carotid artery. Edema: Not present. Lower extremities can't palpate his pulses Musculoskeletal System: General/bilateral: No cyanosis of the fingers. Neurological: Oriented to time, place, and person. Nails: No clubbing of the fingernails. - Lab Results Laboratory Tests 11/25/16 11/25/16 11/25/16 01:11 01:11 01:11 WBC 9.7 RBC 5.23 Hgb 14.9 Hct 45.0 MCV 86 MCH 28.6 MCHC 33.2 RDW 14.7 H Plt Count 182 MPV 8.5 Neut % (Auto) 79.4 H Lymph % (Auto) 11.0 L [place] % (Auto) 5.2 Eos % (Auto) 3.2 Baso % (Auto) 1.2 Absolute Neuts (auto) 7.66 Absolute Lymphs (auto) 1.07 PT INR APTT Puncture Site pH pCO2 pO2 HCO3 Total CO2 Base Excess CPAP Specimen Drawn By Sodium 137 Potassium 4.6 Chloride 107 Carbon Dioxide 17 L Anion Gap 18 H BUN 36 H Creatinine 5.10 H Estimated GFR (MDRD) 11 L Glucose 201 H POC Capillary Glucose Hemoglobin A1c Calculated Osmolality 278 Lactic Acid 1.2 Calcium 7.8 L Corrected Calcium 8.1 L Total Bilirubin 0.5 AST 19 ALT 21 Alkaline Phosphatase 95 Creatine Kinase 82 Troponin I 0.04 Rqz-[id number]-Oemfilhcxmt Pept 78867 H Total Protein 7.1 Albumin 3.7 Triglycerides Cholesterol LDL Cholesterol, Calc VLDL Cholesterol, Calc HDL Cholesterol Cholesterol/HDL Ratio 11/25/16 11/25/16 11/25/16 01:11 01:11 01:11 WBC RBC Hgb Hct MCV MCH MCHC RDW Plt Count MPV Neut % (Auto) Lymph % (Auto) [place] % (Auto) Eos % (Auto) Baso % (Auto) Absolute Neuts (auto) Absolute Lymphs (auto) PT 10.4 INR 1.0 APTT 23.3 Puncture Site pH pCO2 pO2 HCO3 Total CO2 Base Excess CPAP Specimen Drawn By Sodium Potassium Chloride Carbon Dioxide Anion Gap BUN Creatinine Estimated GFR (MDRD) Glucose POC Capillary Glucose Hemoglobin A1c Calculated Osmolality Lactic Acid Calcium Corrected Calcium Total Bilirubin AST ALT Alkaline Phosphatase Creatine Kinase Cancelled Troponin I Cancelled Wqc-H-Kokltpwgndd Pept Cancelled Total Protein Albumin Triglycerides Cholesterol LDL Cholesterol, Calc VLDL Cholesterol, Calc HDL Cholesterol Cholesterol/HDL Ratio 11/25/16 11/25/16 11/25/16 01:15 05:05 05:05 WBC RBC Hgb Hct MCV MCH MCHC RDW Plt Count MPV Neut % (Auto) Lymph % (Auto) [place] % (Auto) Eos % (Auto) Baso % (Auto) Absolute Neuts (auto) Absolute Lymphs (auto) PT INR APTT Puncture Site Right radial pH 7.310 L pCO2 33.0 L pO2 77.0 L HCO3 16.6 L Total CO2 17.6 L Base Excess -8.6 L CPAP 7.5 Specimen Drawn By Kaytr Sodium Potassium Chloride Carbon Dioxide Anion Gap BUN Creatinine Estimated GFR (MDRD) Glucose POC Capillary Glucose Hemoglobin A1c Calculated Osmolality Lactic Acid Calcium Corrected Calcium Total Bilirubin AST ALT Alkaline Phosphatase Creatine Kinase Troponin I 0.06 Mbl-S-Edlkvawlflu Pept Total Protein Albumin Triglycerides 294 H Cholesterol 316 H LDL Cholesterol, Calc 222.2 H VLDL Cholesterol, Calc 58.8 H HDL Cholesterol 35.0 L Cholesterol/HDL Ratio 9.0 11/25/16 11/25/16 11/25/16 05:31 07:09 07:09 WBC RBC Hgb Hct MCV MCH MCHC RDW Plt Count MPV Neut % (Auto) Lymph % (Auto) [place] % (Auto) Eos % (Auto) Baso % (Auto) Absolute Neuts (auto) Absolute Lymphs (auto) PT INR APTT Puncture Site pH pCO2 pO2 HCO3 Total CO2 Base Excess CPAP Specimen Drawn By Sodium Potassium Chloride Carbon Dioxide Anion Gap BUN Creatinine Estimated GFR (MDRD) Glucose POC Capillary Glucose 240 H Hemoglobin A1c 7.4 H Calculated Osmolality Lactic Acid Calcium Corrected Calcium Total Bilirubin AST ALT Alkaline Phosphatase Creatine Kinase Troponin I 0.06 Vhw-R-Jotudcaafcz Pept Total Protein Albumin Triglycerides Cholesterol LDL Cholesterol, Calc VLDL Cholesterol, Calc HDL Cholesterol Cholesterol/HDL Ratio - Diagnostic Findings Electrocardiogram done today at 1:14 a.m. showed sinus tachycardia rate 120, evidence of left ventricle hypertrophy, Q in V1 and V2 rising suspicion for anterior wall anteroseptal wall myocardial infarction, ST segment changes suggesting ischemia. Electrocardiogram done at 3:58 a.m. in the morning showed sinus tachycardia again anteroseptal wall myocardial infarction nonspecific ST- T segment changes. - Assessment/Plan (1) Acute decompensated heart failure I50.9 - HEART FAILURE, UNSPECIFIED Acute Present on Admission: Yes Comment: Seems to be doing better so far. He did receive some diuretic however diuresis is somewhat minimal. He is on CPAP mask which seems to be helping him the best. He seems to be comfortable right now. I will ask him to have an echocardiogram done to assess his left ventricle ejection fraction. Last assessment that I see in the chart is from September of 2015 which showed ejection fraction of being normal. He did have diastolic dysfunction. (2) Hypertensive emergency I16.1 - HYPERTENSIVE EMERGENCY Acute Comment: Blood pressure is well controlled right now will continue present medications. (3) Hypoxemia R09.02 - HYPOXEMIA Acute Comment: Improved significantly with CPAP mask and oxygen support as well as management of his cardiac/pulmonary issues. (4) Type 2 diabetes mellitus with diabetic polyneuropathy E11.42 - TYPE 2 DIABETES MELLITUS WITH DIABETIC POLYNEUROPATHY Acute D Comment: That being addressed by Internal Medicine team. (5) CRI (chronic renal insufficiency) N18.9 - CHRONIC KIDNEY DISEASE, UNSPECIFIED Acute stage 4 (severe) N18.4 - Chronic kidney disease, stage 4 (severe) Comment: Noted, severe kidney dysfunction. He did have upon with national dedicated truck driver he had a discussion already about dialysis. He is ready to proceed that way. (6) Peripheral vascular disease I73.9 - PERIPHERAL VASCULAR DISEASE, UNSPECIFIED Acute Comment: Apparently he does have significant/critical stenosis in the left either internal carotid artery to common carotid artery. He was scheduled to have stenting done however he end up being in our hospital. Plan: This is extremely complex and complicated situation. He does have multiple problems. For today I will ask him to have an echocardiogram done to check his left ventricle ejection fraction. It appears to me that the most critical issue is his significant stenosis his carotic artery. This problem need to be addressed promptly. My understanding was that he is ready to have stenting done which probably is visible if his ejection fraction is fine and he improved overall clinically. I think we can manage this pain showed the best by transfer him to tertiary care center. Look like [facility] the optimal [facility] since he does have his national dedicated truck driver as well as vascular specialist over there. His carotid endarterectomy need to be done after evaluating of his heart. And then shunt should be done for dialysis and dialysis need to be started when ready.
--- NOTE | 2016-11-25 12:24 | GENMEDPROG ---
Chief Complaint: SANCHES CHF, TASHA, M HTN, HYPOXIA, CAD, PERIPHERAL VASC DZ Currently: Reports: BOWERS, SOB. Denies: Cough, Ambulating - Physical Examination Vital Signs and I&O: Last Vital Signs Temp 97.5 F 11/25/16 11:26 Pulse 94 11/25/16 11:26 Resp 15 11/25/16 11:41 BP 152/89 11/25/16 11:26 Pulse Ox 98 11/25/16 11:41 Oxygen Pulse Oxygen Saturation 98 O2 Device BiPAP Oxygen Flow Rate 4 Fraction of Inspired Oxygen ( 35 FIO2) Intake & Output 11/22/16 11/23/16 11/24/16 11/25/16 23:59 23:59 23:59 23:59 Intake Total 7 Output Total 300 Balance -293 Patient's weight 85.077 kg General: Alert, Oriented x3, Cooperative, No acute distress HEENT: Normal, PERRLA, EOMI, Anicteric Sclera, Mucous membr. moist/pink Neck: Full range of motion, Normal Trachea alignment, Normal inspection, No Masses palpable, No Thyromegaly palpable Respiratory: Accessory Muscle Use, Diminished, Rales, Tachypnea, Other (CPAP, RESP DISTRESS, UNABLE TO SPEAK CLEARLY) Cardiovascular: Regular rate and rhythm, Normal S1, Normal S2, Murmurs (2/6 SYS MURMUR), Good Pedal Pulses. negative: LE Edema GI: Normal bowel sounds, Soft, Non tender, No masses Extremities/Musculoskeletal: Normal pulses, FROM Skin: Warm,Dry and Intact, No significant lesion Neurological: Normal speech, Strength at 5/5 X4 ext, Normal tone, Cranial nerves 3-12 NL Psych/Mental Status: Normal Affect, Cooperative Lab/DI/Studies Reviewed: Laboratory Tests 11/25/16 11/25/16 11/25/16 01:11 01:11 01:11 WBC 9.7 Hgb 14.9 Hct 45.0 Plt Count 182 Neut % (Auto) 79.4 H Lymph % (Auto) 11.0 L [place] % (Auto) 5.2 PT INR APTT Puncture Site pH pCO2 pO2 HCO3 Total CO2 Base Excess CPAP Sodium 137 Potassium 4.6 Chloride 107 Carbon Dioxide 17 L Anion Gap 18 H BUN 36 H Creatinine 5.10 H Estimated GFR (MDRD) 11 L Glucose 201 H POC Capillary Glucose Hemoglobin A1c Calculated Osmolality 278 Lactic Acid 1.2 Calcium 7.8 L Corrected Calcium 8.1 L Total Bilirubin 0.5 AST 19 ALT 21 Alkaline Phosphatase 95 Creatine Kinase 82 Troponin I 0.04 Dkr-H-Boloftecdxw Pept 76450 H Total Protein 7.1 Albumin 3.7 Triglycerides Cholesterol LDL Cholesterol, Calc VLDL Cholesterol, Calc HDL Cholesterol Cholesterol/HDL Ratio Ur Random Microalbumin 11/25/16 11/25/16 11/25/16 01:11 01:15 05:05 WBC Hgb Hct Plt Count Neut % (Auto) Lymph % (Auto) [place] % (Auto) PT 10.4 INR 1.0 APTT 23.3 Puncture Site Right radial pH 7.310 L pCO2 33.0 L pO2 77.0 L HCO3 16.6 L Total CO2 17.6 L Base Excess -8.6 L CPAP 7.5 Sodium Potassium Chloride Carbon Dioxide Anion Gap BUN Creatinine Estimated GFR (MDRD) Glucose POC Capillary Glucose Hemoglobin A1c Calculated Osmolality Lactic Acid Calcium Corrected Calcium Total Bilirubin AST ALT Alkaline Phosphatase Creatine Kinase Troponin I Dit-X-Jfmmphwzrvq Pept Total Protein Albumin Triglycerides 294 H Cholesterol 316 H LDL Cholesterol, Calc 222.2 H VLDL Cholesterol, Calc 58.8 H HDL Cholesterol 35.0 L Cholesterol/HDL Ratio 9.0 Ur Random Microalbumin 11/25/16 11/25/16 11/25/16 05:31 07:09 07:53 WBC Hgb Hct Plt Count Neut % (Auto) Lymph % (Auto) [place] % (Auto) PT INR APTT Puncture Site pH pCO2 pO2 HCO3 Total CO2 Base Excess CPAP Sodium Potassium Chloride Carbon Dioxide Anion Gap BUN Creatinine Estimated GFR (MDRD) Glucose POC Capillary Glucose 240 H Hemoglobin A1c 7.4 H Calculated Osmolality Lactic Acid Calcium Corrected Calcium Total Bilirubin AST ALT Alkaline Phosphatase Creatine Kinase Troponin I Pvx-V-Yoawttluwpk Pept Total Protein Albumin Triglycerides Cholesterol LDL Cholesterol, Calc VLDL Cholesterol, Calc HDL Cholesterol Cholesterol/HDL Ratio Ur Random Microalbumin Pending - Assessment (1) Acute on chronic diastolic (congestive) heart failure Acute I50.33 - ACUTE ON CHRONIC DIASTOLIC (CONGESTIVE) HEART FAILURE Comment /Plan: The patient has both acute and chronic heart failure. Heart failure type: Diastolic per Echocardiogram from past: Echo September 2015 : EF 55-60%. Diastolic dysfunction. Plan: Admit to PCU with telemetry. CHF order set. Diet of 2 g Na. Daily weights with strict I/O's. No IVF unless patient is NPO. As tolerated, give beta yin. No DANA inhibitor or ARB due to acute and chronic renal failure. Give Lasix IV scheduled, but caution due to acute on chronic renal failure. Replace potassium as needed. Monitor heart rate, blood pressure, and respiratory status carefully. Provide support with oxygen. Consult cardiology, Provide teaching regarding heart failure, 2g Na diet, daily weights, signs of acute heart failure. (2) Hypertensive emergency Acute I16.1 - HYPERTENSIVE EMERGENCY Comment/Plan: Severe elevation of blood pressure with acute pulmonary edema. SBP greater than 200 initially. Was given nitro paste and started on IV nitro gtt in the emergency department. Improving. Wean off IV Nitro gtt. Will have echo done this morning. Continue Nitro paste for now. Adding beta yin. Consider transfer to [facility] for continued care, since all of his cardiologists and rock crushing machine operator are up there. 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 Check fingerstick blood sugars q ac and hs. Sliding scale insulin. Ordered A1c and urine microalbumin. (5) CKD stage 4 due to type 2 diabetes mellitus Chronic E11.22 - TYPE 2 DIABETES MELLITUS W DIABETIC CHRONIC KIDNEY DISEASE; N18.4 - CHRONIC KIDNEY DISEASE, STAGE 4 (SEVERE) Comment/Plan: Continue to monitor renal function. As we expect it will be difficult to diurese patient and he already has an element of pulmonary edema, his renal failure is advanced and would be expected to deteriorate more with continued diuresis, and he is experiencing some angina symptoms, while awaiting cardiac clearance for another vascular procedure. I feel he will be better served by transfer to [facility] where he can be evaluated by his usual physicians. His rock crushing machine operator is Dr. Bauman in [place]. Office number is [phone]. Case Care Discussed with: Patient, Consultants, Nursing Staff Education/Counseling Given To: Patient, Family Member Education/Counseling Given Regarding: Diagnosis, Treatment, Prognosis Total Time: 180 min Critical Care: Yes Couseling Time (>50% in counseling/coordination): Yes Code: 291 ([id number])
[2016-11-25] MEDS ORDERED: GLARGINE INSULIN (LANTUS) 100 UNITS/ML PEN SQ SCH ×2 (13:00→21:00)
--- NOTE | 2016-11-25 15:41 | PCM.DCS92 ---
- Final/Secondary Discharge Diagnosis (1) Acute on chronic diastolic (congestive) heart failure Acute I50.33 - ACUTE ON CHRONIC DIASTOLIC (CONGESTIVE) HEART FAILURE Present on Admission: Yes Comment: The patient has both acute and chronic heart failure. Heart failure type: Diastolic per Echocardiogram from past: Echo September 2015 : EF 55-60%. Diastolic dysfunction. Admitted to PCU with telemetry. CHF order set. Diet of 2 g Na. Daily weights with strict I/O's. No IVF unless patient is NPO. As tolerated, give beta yin. Has diuresed about 300 mL urine since admission. No DANA inhibitor or ARB due to acute and chronic renal failure. Give Lasix IV scheduled, but caution due to acute on chronic renal failure. Replace potassium as needed. Monitor heart rate, blood pressure, and respiratory status carefully. Provide support with oxygen. Consult cardiology, Provide teaching regarding heart failure, 2g Na diet, daily weights, signs of acute heart failure. (2) Hypertensive emergency Acute I16.1 - HYPERTENSIVE EMERGENCY Present on Admission: Yes Comment: Severe elevation of blood pressure with acute pulmonary edema. SBP greater than 200 initially. Was given nitro paste and started on IV nitro gtt in the emergency department. Improving. Wean off IV Nitro gtt. Will have echo done this morning. Continue Nitro paste for now. Adding beta yin. Consider transfer to [facility] for continued care, since all of his cardiologists and subgrade roller operator are there. (3) Respiratory distress Acute R06.00 - DYSPNEA, UNSPECIFIED Present on Admission: Yes Comment: Patient still coughing, but states he is feeling better. Can tolerate coming off the BiPAP for several hours now and use 3-4 L per NC. 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 Check fingerstick blood sugars q ac and hs. Sliding scale insulin. HgA1c =7.4 and urine microalbumin -pending (5) CKD stage 4 due to type 2 diabetes mellitus Chronic E11.22 - TYPE 2 DIABETES MELLITUS W DIABETIC CHRONIC KIDNEY DISEASE; N18.4 - CHRONIC KIDNEY DISEASE, STAGE 4 (SEVERE) Present on Admission: Yes Comment: Continue to monitor renal function. As we expect it will be difficult to diurese patient and he already has an element of pulmonary edema, his renal failure is advanced and would be expected to deteriorate more with continued diuresis. He has only diuresed 300 mL after 80 mg Lasix IV. He is experiencing some angina symptoms, while awaiting cardiac clearance for another vascular procedure. I feel he will be better served by transfer to [facility] where he can be evaluated by his usual physicians. His subgrade roller operator is Dr. Bauman in [place]. Office number is [phone]. Discharge Disposition: Trans. to Other Hospital Discharge Condition: Stable Cognitive Discharge Status: Unimpaired Fuctional Discharge Status: Bed Bound, Inability to drive due to severe medical illness, Dyspnea with ambulation Physician Follow up/Referrals: Clive Anguiano MD [Primary Care Provider] - One Week Home Medications / New Prescriptions: No Action Amlodipine [Norvasc] 5 mg PO DAILY Esomeprazole Mag Trihydrate [Nexium] 40 mg PO DAILY Insulin Glargine,Hum.rec.anlog [Lantus] 20 unit SQ HS Calcitriol [Rocaltrol] 0.25 mcg PO DAILY Gabapentin 300 mg PO HS CloNIDine (Antihypertensive) [Catapres] 0.2 mg PO QAM Magnesium Oxide [Magox] 400 mg PO DAILY Sodium Bicarbonate 650 mg PO BID CloNIDine (Antihypertensive) [Catapres] 0.1 mg PO HS Aspirin [Aspirin EC] 81 mg PO DAILY O2 Device: Nasal Cannula Oxygen Flow Rate: 2 Oxygen to be used after Discharge: Continuous Diet at Discharge: Heart Healthy, Diabetic, 1800 Calorie Activity: As Tolerated Call Office For: Worsening Symptoms Discontinue use of:: Alcohol, All Types of Tobacco - DC Summary Notes Hospital Course Note:: Discharge summary on patient named AGNIESZKA SEGOVIA admitted to [facility] on 11/25/16 by Fredo Alvarez MD. Date of discharge is []. The patient is a 65 yo man with diastolic congestive heart failure (EF 55-60% in 09/2015), COPD per report, who presents with shortness of breath. He has had shortness of breath for a month, but last night it became so severe that he had to call EMS. He began to have profuse diaphoresis. No chest pressure, pain, or heaviness. Onset: Last night (a few hours ago). Duration: intermittent. Character: Severe; could not catch his breath. Alleviated by: Nothing. Exacerbated by: any exertion. Associated Symptoms: Palpitations but no chest pain. Diaphoresis. No Fever, chills. Shortness of breath and wheezing was worse tonight. Has coughing also, but no change in the sputum. Leg swelling is worse than normal. Has not noticed any weight gain. Treatments: none at home except usual medications. When EMS arrived, they found the patient to be in acute respiratory failure, with abdominal breathing, and started him on CPAP immediately. They found his blood pressure to be severely elevated at 260/130. They placed 2" of Nitropaste on the patient. In the emergency department the patient was still in respiratory failure, and was placed on BiPAP. For his elevated blood pressure, he was started on an IV nitro gtt, and the 2" nitropaste was left in place. The patient has both acute and chronic heart failure. Heart failure type: Diastolic per Echocardiogram from past: Echo September 2015 : EF 55-60%. Diastolic dysfunction. Admitted to PCU with telemetry. CHF order set. Diet of 2 g Na. Daily weights with strict I/O's. No IVF unless patient is NPO. As tolerated, give beta yin. Has diuresed about 300 mL urine since admission. No DANA inhibitor or ARB due to acute and chronic renal failure. He does have significant peripheral vascular disease. Apparently did have some work done in his distal lower aorta and iliac vessels. He also had a right coronary endarterectomy done couple years ago. Recently he was discovered to have critical lesion in left internal carotid artery. He was scheduled to have carotid endarterectomy but before that, he was asked to see superintendent transportation in [place] for clearance. In the meantime, however, he started complaining of having increasing shortness of breath within the last couple of days to weeks. There is no swelling of lower extremities, just shortness of breath and some paroxysmal nocturnal dyspnea. He was not able to do anything without getting significantly short of breath. When he came to the emergency room he was found to be in pulmonary edema. He was given diuretics and placed on BiPAP. We will continue to give Lasix 80 mg IV scheduled, but cautiously due to acute on chronic renal failure. Replaced potassium as needed. Monitored heart rate, blood pressure, and respiratory status carefully. Provided support with oxygen. Consulted cardiology, provided teaching regarding heart failure, 2g Na diet, daily weights, signs of acute heart failure. Unfortunately the patient failed to improve much overnight. I have contacted his subgrade roller operator in [place], since if he is scheduled for a carotid endarterectomy, it may be best to have it done where his subgrade roller operator and cardiology group are familiar with him. In addition, he may need pre- operative dialysis to control his pulmonary his pulmonary edema. His creatinine is 5 at the present time. Both Dr. Bauman and Dr. Doss were advised of his situation and kindly agreed to accept this patient in transfer to [facility]. Total Time: 45 min Code: 20129 (>30min.) - Physical Exam Vital Signs: Last Vital Signs Temp 97.5 F 11/25/16 11:26 Pulse 114 11/25/16 15:37 Resp 15 11/25/16 11:41 BP 152/89 11/25/16 11:26 Pulse Ox 95 11/25/16 11:50 Oxygen Pulse Oxygen Saturation 95 O2 Device Nasal Cannula Oxygen Flow Rate 2 Fraction of Inspired Oxygen ( 35 FIO2) Constitutional: Alert, Restless, Well nourished. negative: Well appearing Oriented to: Time, Person, Place, Other ( INC WOB, RESP DISTRESS) - HEENT Head: Normal Eye: Normal Oropharynx: Normal, Membranes Dry. negative: Exudate, Red Tympanic Membrane: Normal Nose: No Symptoms Reported. negative: Bleeding, Congestion, Discharge - Respiratory/Cardiovascular Respiratory: Accessory Muscle Use, Diminished, Rales, Tachypnea, Other ( RESP DISTRESS, able to speakk in short sentences now) Cardiovascular: Tachycardia, Irregular - GI Auscultation: Normal Palpation: Normal (soft, nondistended) Tenderness: Non tender, Other (MIDLINE INCISION SCAR) Elkins's Sign: Negative Rectal Exam: Deferred - Musculoskeletal Back: Normal Extremities: Pedal Edema (resolved) - Integumentary Skin: Warm, Diaphoretic Lymphatics: Normal - Neurologic Memory Impaired: Normal Motor Function: Normal Cranial Nerve: Normal Cerebellar: Normal Mood Description: Anxious, Appropriate Thought: Coherent Perception: Normal
--- NOTE | 2016-11-25 15:44 | CAPUECHO ---
INDICATION: CHF HEIGHT: 180.3 cm (5 ft 11.0 in) WEIGHT: 84.8 kg (187.0 lbs) BP: 152/89 BSA: 2.11064 m MEASUREMENTS 2D RVIDd: 3.1 cm LVOT Diam: 2.0 cm LA Diam: 4.0 cm EF Biplane: 48.52 % LAESV MOD A4C: 53.9 ml LAESV MOD A2C: 42.9 ml LAESV Index (A-L): 25.82 ml/m M-MODE IVSd: 1.2 cm LVIDd: 6.5 cm LVPWd: 1.2 cm LVIDs: 5.0 cm EF(Teich): 45 % Ao Diam: 3.5 cm LA Diam: 4.5 cm DOPPLER MV E Jama: 1.20 m/s MV A Jama: 0.00 m/s MV PHT: 29.46 ms MVA By PHT: 7.47 cm LVOT Vmax: 0.66 m/s AV Vmax: 0.85 m/s ANA PAULA Vmax, Pt: 2.55 cm TR Vmax: 2.16 m/s TR maxP mmHg RVSP: 28.60 mmHg FINDINGS ------- Procedure:2D images, m-mode, color and spectral Doppler were obtained and reviewed. ECG rhythm:Sinus rhythm. Study quality:This was a technically adequate study. Previous exam 09/2015. Left Ventricle:The left ventricle is moderately dilated. There is mild concentric left ventricular hypertrophy. Overall left ventricular systolic function is severely impaired with, an EF between 25 - 30 %. Restrictive LV filling pattern, consistent with elevated LA pressure. Basal anterior LV wall motion is akinetic. Mid anterior LV wall motion is akinetic. Mid anteroseptal LV wall motion is akinetic. Apical anterior LV wall motion is akinetic. Apical lateral LV wall motion is akinetic. Apical inferior LV wall motion is akinetic. Apical septum LV wall motion is nayana etic. Right Ventricle:The right ventricle is normal in size and function. Left Atrium:The left atrium is mildly dilated. Right Atrium:The right atrium is normal in size and function. Aortic Valve:The aortic valve is trileaflet and appears structurally normal. There is mild aortic valve sclerosis. Mitral Valve:Normal appearing mitral valve. There is trace to mild mitral regurgitation. Tricuspid Valve:The tricuspid valve appears structurally normal. Mild tricuspid regurgitation pres ent. The right ventricular systolic pressure, as measured by Doppler, is 29mmHg. Pulmonic Valve:The pulmonic valve is normal. There is no pulmonic regurgitation present. Aorta:The aortic root, ascending aorta and aortic arch appear TDS. IVC:Normal inferior vena cava with normal inspiratory collapse. Pericardium:There is no pericardial effusion. CONCLUSIONS 1. The left ventricle is moderately dilated. 2. There is mild concentric left ventricular hypertrophy. 3. Overall left ventricular systolic function is severely impaired with, an EF between 25 - 30 %. 4. Restrictive LV filling pattern, consistent with elevated LA pressure. 5. Basal anterior LV wall motion is akinetic. 6. Mid anterior LV wall motion is akinetic. 7. Mid anteroseptal LV wall motion is akinetic. 8. Apical anterior LV wall motion is akinetic. 9. Apical lateral LV wall motion is akinetic. 10. Apical inferior LV wall motion is akinetic. 11. Apical septum LV wall motion is akinetic. 12. The left atrium is mildly dilated. 13. There is trace to mild mitral regurgitation. 14. Mild tricuspid regurgitation present. 15. The right ventricular systolic pressure, as measured by Doppler, is 29mmHg. Electronically Signed By: Curry Zuniga MD -- Electronically Signed On: 15:44:26
[2016-11-25 17:57] VITALS: BP 193/113; PULSE 111; TEMP 98.7
[2016-11-25] MEDS ORDERED: GABAPENTIN 300 MG CAP PO SCH (21:00)
[2016-11-25] MEDS ORDERED: SODIUM BICARBONATE 650 MG (10 GR) TAB PO SCH (21:00)
[2016-11-25] MEDS ORDERED: INSULIN GLARGINE 20 UNIT SQ SCH (21:00)
[2016-11-26] MEDS ORDERED: PANTOPRAZOLE 40 MG TAB PO SCH (06:00)
[2016-11-26] MEDS ORDERED: FLU VACCINE (Afluria) 0.5 ML DOSE IM ONE (08:00)
[2016-11-26] MEDS ORDERED: CloNIDine 0.2 MG TAB PO SCH (09:00)
[2016-11-26] MEDS ORDERED: AMLODIPINE 5 MG TAB PO SCH (09:00)
[2016-11-26] MEDS ORDERED: CALCITRIOL 0.25 MCG PO SCH (09:00)
[2016-11-26] MEDS ORDERED: MAGNESIUM OXIDE 400 MG TAB PO SCH (12:00)
== END 2016-11-25 17:51 | disposition short-term general hospital (02) | DRG 291 ==
LOC: ED 01:05 → PCU 03:49
PROVIDERS: ADMIT Internal Medicine; ATTEND Family Medicine
PROC: 5A09357 Assistance with Respiratory Ventilation, Less than 24 Consecutive Hours, Continuous Positive Airway Pressure (ICD-10-PCS; principal; 2016-11-25)
PROC: 039B3ZZ Drainage of Right Radial Artery, Percutaneous Approach (ICD-10-PCS; 2016-11-25)
DX: I13.0 Hypertensive heart and chronic kidney disease with heart failure and stage 1 through stage 4 chronic kidney disease, or unspecified chronic kidney disease (principal); I50.33 Acute on chronic diastolic (congestive) heart failure; N18.4 Chronic kidney disease, stage 4 (severe); E11.22 Type 2 diabetes mellitus with diabetic chronic kidney disease; I16.1 Hypertensive emergency; E11.42 Type 2 diabetes mellitus with diabetic polyneuropathy; R09.02 Hypoxemia; J44.9 Chronic obstructive pulmonary disease, unspecified; I25.10 Atherosclerotic heart disease of native coronary artery without angina pectoris; I73.9 Peripheral vascular disease, unspecified; J43.1 Panlobular emphysema; K21.9 Gastro-esophageal reflux disease without esophagitis; Z86.73 Personal history of transient ischemic attack (TIA), and cerebral infarction without residual deficits; Z79.4 Long term (current) use of insulin; Z95.1 Presence of aortocoronary bypass graft; Z79.84 Long term (current) use of oral hypoglycemic drugs; Z87.891 Personal history of nicotine dependence; Z79.899 Other long term (current) drug therapy; R94.31 Abnormal electrocardiogram [ECG] [EKG]; R00.0 Tachycardia, unspecified
CPT/HCPCS: 36415; 36600; 71010; 80053; 80061; 82043; 82550; 82803; 82962; 83036; 83605; 83880; 84484; 85025; 85610; 85730; 87040; 87070; 87205; 93005; 93306; 94640; 94660; 96372; 96375; 97162; 99285; J1650; J1940; J2930; J3490; J7620